=== PATIENT | female | born 1965 | race Caucasian/White ===

== ENCOUNTER 2024-02-22 05:42 | Day surgery (SDC) | payer BC, MEDICARE ==
[2024-02-14 15:21] LABS: BILIRUBIN,URINE NEGATIVE (Neg); CLARITY,URINE SLIGHTLY CLOUDY (Clear); COLOR,URINE YELLOW (Yellow); GLUCOSE, URINE NEGATIVE (Neg); KETONES,URINE NEGATIVE (Neg); LEUKOCYTE ESTERASE ,URINE NEGATIVE (Neg); NITRITES, URINE POSITIVE (Neg); OCCULT BLOOD,URINE NEGATIVE (Neg); PROTEIN,URINE NEGATIVE (Neg); UROBILINOGEN,URINE 0.2 E.U/dL (0.2-1.0)
[2024-02-14 15:25] LABS: BASOPHILS % (AUTO) 0.5 % (0-1); EOSINOPHILS # (AUTO) 0.1 X10'3 (0-0.9); EOSINOPHILS % (AUTO) 1.5 % (0-6); LYMPHOCYTES # (AUTO) 1.7 X10'3 (1.1-4.8); LYMPHOCYTES % (AUTO) 20.1 % (21-51); MEAN CORPUSCULAR HEMOGLOBIN 28.5 PG (27.0-31.0); MEAN CORPUSCULAR HGB CONC 33.7 g/dL (33.0-36.5); MEAN CORPUSCULAR VOLUME 84.7 FL (78-98); MEAN PLATELET VOLUME 7.7 FL (7.4-10.4); MONOCYTES # (AUTO) 0.5 X10'3 (0-0.9); MONOCYTES % (AUTO) 6.2 % (2-12); NEUTROPHILS # (AUTO) 6.2 X10'3 (1.8-7.7); NEUTROPHILS % (AUTO) 71.7 % (42-75); PRE OP HEMATOCRIT 41.6 % (35.0-45.0); PRE OP PLATELET COUNT 291 X10'3 (140-440); PRE OP WHITE BLOOD COUNT 8.7 10'3 (4.8-10.8); RED BLOOD COUNT 4.91 X10'6 (4.20-5.60); RED CELL DISTRIBUTION WIDTH 13.3 % (11.5-14.5)
[2024-02-14 15:38] LABS: ALBUMIN 3.7 G/DL (3.4-5.0); ALBUMIN/GLOBULIN RATIO 0.9 (1.1-1.5); ALKALINE PHOSPHATASE 72 IU/L (46-116); BLOOD UREA NITROGEN 15 MG/DL (7-18); CALCIUM 9.1 MG/DL (8.5-10.1); CHLORIDE 103 MMOL/L (99-107); CREATININE 0.88 MG/DL (0.40-0.90); PRE OP ALT 40 U/L (30-65); PRE OP ANION GAP 8 (8-16); PRE OP AST 28 U/L (10-37); PRE OP BILIRUB, TOTAL 0.5 MG/DL (0.0-1.0); PRE OP GLUCOSE 122 MG/DL (70-104); PRE OP POTASSIUM 3.7 MMOL/L (3.4-5.1); PRE OP SODIUM 139 MMOL/L (135-145); TOTAL CARBON DIOXIDE 27.8 MMOL/L (24-32); TOTAL PROTEIN 7.8 G/DL (6.4-8.2); eGFR 66 ML/MIN
[2024-02-14 16:05] LABS: UA COLLECTION TYPE CLN CATCH MIDSTREAM
[2024-02-14 16:06] LABS: BACTERIA,URINE 4+ /HPF (Neg); MUCUS STRANDS FEW /LPF (Neg); SQUAMOUS EPITHELIAL CELL,UR MODERATE /LPF (FEW)
[2024-02-14 16:07] LABS: RBC,URINE 0-2 /HPF (0-2)
[~2024-02-22] VITALS: Ht 165.1 cm; Wt 117.7 kg
[2024-02-22] VITALS (8 sets, daily range): BP systolic 119–140; BP diastolic 68–90; PULSE 57–96; RESP 12–18; TEMP 98.6; O2SAT 94–98
[~2024-02-22 05:42] MED LIST: DOXE10CA3 PO
[2024-02-22] MEDS: ringers solution, lacted 1,000 ML IV SCH (06:33)
[2024-02-22] MEDS: famotidine 20mg tablet PO ONE (06:33)
[2024-02-22] MEDS: ceFOXitin 2GM-NS 100mL ADDvant 100 ML IV ONE (06:33)
[2024-02-22] MEDS ORDERED: sevoflurane 250ml liquid IH ONE (07:22)
[2024-02-22] MEDS ORDERED: midazolam 1 mg/ML 2ml injection ONE (07:31)
[2024-02-22] MEDS ORDERED: fentaNYL/PF 50MCG/1 ML 2ML syringe ONE (07:31)
[2024-02-22] MEDS ORDERED: propofol inj 20 ML IV ONE (07:40)
[2024-02-22] MEDS ORDERED: LIDOcaine 2% (20mg/ml) 5ml vial ONE (07:40)
[2024-02-22] MEDS ORDERED: ondansetron/PF 4mg/2ml inj ONE (07:43)
[2024-02-22] MEDS ORDERED: proCHLORperazine 10 MG/2 ml inj IV PRN (08:00)
[2024-02-22] MEDS ORDERED: morphine 2 MG/ML inj. syringe IV PRN (08:00)
[2024-02-22] MEDS ORDERED: ondansetron/PF 4mg/2ml inj IV PRN (08:00)
[2024-02-22] MEDS ORDERED: morphine 4 MG/ML inj SYRINge IV PRN (08:00)
[2024-02-22] MEDS ORDERED: meperidine/PF 25mg/ml syringe IV PRN ×3 (08:00)
[2024-02-22] MEDS ORDERED: ringers solution, lacted 1,000 ML IV SCH (08:00)
[2024-02-22] MEDS ORDERED: enalaprilat dihydrate 2.5mg/2ml vial IV PRN (08:00)
[2024-02-22] MEDS ORDERED: labetalol 20mg/4ml (5mg/ml) syringe IV PRN (08:00)
[2024-02-22] MEDS ORDERED: acetaminophen 1,000mg/100ml IV 100 ML IV ONE (08:18)
== END 2024-02-22 09:25 | disposition home or self-care (01) ==
LOC: PAS 05:42
PROVIDERS: ATTEND Obstetrics & Gynecology Obstetrics
DX: N95.0 Postmenopausal bleeding (principal); E11.9 Type 2 diabetes mellitus without complications; E66.01 Morbid (severe) obesity due to excess calories; Z87.442 Personal history of urinary calculi; Z79.899 Other long term (current) drug therapy; Z90.89 Acquired absence of other organs; Z98.891 History of uterine scar from previous surgery; Z98.890 Other specified postprocedural states; Z68.41 Body mass index [BMI] 40.0-44.9, adult
CPT/HCPCS: 36415; 58558; 80053; 81001; 82948; 85025; 86885; 86900; 86901; 87077; 87088; 87186; J0131; J0694; J1100; J2250; J2405; J2704; J3010; J3490; J7030; J7120; Z7506; Z7508; Z7512; A4355; A4618; A6258